=== PATIENT | female | born 1940 | race Caucasian/White ===

== ENCOUNTER 2022-05-05 09:10 | Day surgery (SDC) | payer OTHER, MEDICARE ==
[2022-05-01 11:28] VITALS: BMI 26.2
[2022-05-05 11:15] VITALS: RESP 20; TEMP 97.8
[2022-05-05 11:20] VITALS: BP 110/58; PULSE 68
== END 2022-05-05 11:27 | disposition home or self-care (01) ==
LOC: FASU-ENDO 09:10
PROVIDERS: ATTEND Internal Medicine Gastroenterology
PROC: 0DBL8ZX Excision of Transverse Colon, Via Natural or Artificial Opening Endoscopic, Diagnostic (ICD-10-PCS; principal; 2022-05-05 10:27)
DX: Z12.11 Encounter for screening for malignant neoplasm of colon (principal); Z86.010 Personal history of colon polyps; D12.3 Benign neoplasm of transverse colon; K63.5 Polyp of colon; K57.30 Diverticulosis of large intestine without perforation or abscess without bleeding
CPT/HCPCS: 88305-TC